=== PATIENT | male | born 1935 | race Caucasian/White ===

== ENCOUNTER 2017-02-20 06:24 | Observation (INO) | payer MEDICARE, OTHER ==
[~2017-02-20 06:24] MED LIST: ADVAIR; BENICAR HCT 401 EACH PO; CHANTIX0.5 MG; LEVAQUIN750 MG PO; LIPITOR40 M1 PO; LIPITOR40 MG; MULTI VITAMIN1 EAC2 PO; OMEPRAZOLE40 M2 PO; PREDNISONE20 MG PO; SPIRIVA RESPIMAT4 G1 INH; TARKA 4/2401 BOTTLE; TOPROL XL25 M1 PO; TYLENOL325 M2 PO; UROXATRAL10 M1 PO; UROXATRAL10 MG; VENTOLIN HFA18 G1 IH
[2017-02-20 07:07] LABS: BASO % 0.7 % (0-2); EOS % 2.1 % (0-7); EOSINOPHIL ABSOLUTE COUNT 0.1 tho/cmm (0.0-0.7); HCT-HEMATOCRIT 40.1 % (36.0-53.5); HGB-HEMOGLOBIN 13.6 gm/dl (13.5-17.0); LYMPH % 30.2 % (20-45); LYMPH ABSOLUTE COUNT 1.7 tho/cmm (0.8-4.5); MCH (MEAN CORPUSCULAR HGB) 31.4 pg (28.0-32.0); MCHC MEAN CORPUSCULAR HGB CONC 33.9 % (32.0-36.0); MCV (MEAN CELL VOLUME) 92.6 fl (82.0-96.0); MEAN PLATELET VOLUME 10.2 cmc (9.4-12.4); MONO % 10.7 % (0-12); MONOCYTE ABSOLUTE COUNT 0.6 tho/cmm (0.0-1.2); NEUTROPHIL ABSOLUTE COUNT 3.2 tho/cmm (1.6-8.0); NEUTROPHIL-AUTOMATED 3.2 tho/cmm (1.6-8.0); NEUTROPHILS % 56.3 % (40-80); PLATELET COUNT 173 tho/cmm (150-450); RED BLOOD COUNT 4.33 mil/cmm (4.40-5.70); RED CELL DISTRIBUTION WIDTH 13.3 % (12.4-16.4); WHITE BLOOD COUNT 5.6 tho/cmm (4.0-10.0)
[2017-02-20 07:11] LABS: INR 0.9 INR (0.9-1.1); PROTHROMBIN TIME 10.9 SECONDS (9.0-13.6)
[2017-02-20 07:24] LABS: ALB/GLOB RATIO 1.1 (0.8-2.0); ALBUMIN 3.4 g/dl (3.5-5.0); ALKALINE PHOSPHATASE 93 U/L (33-138); ALT/SGPT 21 U/L (12-78); ANION GAP 10 mmol/L (0-20); AST/SGOT 22 U/L (10-40); BILIRUBIN,TOTAL 0.5 mg/dl (0.0-1.5); BLOOD UREA NITROGEN 11 mg/dl (6-24); CALCIUM 8.5 mg/dl (8.5-10.5); CARBON DIOXIDE-VENOUS 28 mmol/L (22-32); CHLORIDE 109 mmol/l (96-110); CREATININE 0.94 mg/dl (0.60-1.30); GLUCOSE 107 mg/dL (70-110); POTASSIUM 3.8 mmol/L (3.7-5.1); SODIUM 143 mmol/L (135-145); eGFR VALUE FOR BLACK 88 mL/Min
[2017-02-20 08:12] LABS: ESR-ERYTHROCYTE SED RATE 4 mm/hr (0-20)
[2017-02-21] MEDS ORDERED: ASPIRIN325 M3 PO (12:27)
== END 2017-02-21 13:00 ==
LOC: EDMED 06:24 → EMR2 09:17 → 5EB 10:20
PROVIDERS: Emergency Medicine; Internal Medicine; ADMIT Hospitalist
DX: G45.9 Transient cerebral ischemic attack, unspecified (principal); J96.11 Chronic respiratory failure with hypoxia; J43.9 Emphysema, unspecified; E78.5 Hyperlipidemia, unspecified; I10 Essential (primary) hypertension; J44.9 Chronic obstructive pulmonary disease, unspecified; F17.210 Nicotine dependence, cigarettes, uncomplicated; Z79.899 Other long term (current) drug therapy
CPT/HCPCS: A9577; G0378; G8978-GP-CH; G8979-GP-CH; G8980-GP-CH; G8987-GO-CH; G8988-GO-CH; G8989-GO-CH; J1650; J7030